=== PATIENT | male | born 1995 | race American Indian/Alaskan Native ===

== ENCOUNTER 2017-09-23 13:45 | Inpatient (IN) | payer OTHER ==
[2017-09-23] MEDS ORDERED: ZOFRAN IV ONE (14:21)
[2017-09-23] MEDS ORDERED: NACL 0.9% 1000 ML 1,000 ML IV ONE (14:21)
[2017-09-23] MEDS ORDERED: TORADOL IV ONE (14:21)
[2017-09-23 14:52] LABS: Basophils # (Auto) 0.1 K/mm3 (0.0-0.1); Basophils % (Auto) 0.5 % (0.0-1.8); Eosinophils # (Auto) 0.1 K/mm3 (0.0-0.4); Eosinophils % (Auto) 0.7 % (0.0-4.3); Hematocrit 43.6 % (35.5-45.6); Hemoglobin 14.2 gm/dl (11.8-15.2); Lymphocytes # (Auto) 1.1 K/mm3 (1.2-5.4); Lymphocytes % (Auto) 10.9 % (13.4-35.0); Mean Corpuscular HGB Conc 33 % (32-34); Mean Corpuscular Hemoglobin 27 pg (28-32); Mean Corpuscular Volume 83 fl (84-94); Monocytes # (Auto) 0.6 K/mm3 (0.0-0.8); Monocytes % (Auto) 5.9 % (0.0-7.3); Platelet Count 188 K/mm3 (140-440); Red Blood Count 5.23 M/mm3 (3.65-5.03); Red Cell Distribution Width 15.3 % (13.2-15.2)
--- NOTE | 2017-09-23 15:06 | Cat Scan Report ---
FINAL REPORT EXAM: CT HEAD/BRAIN WO CON HISTORY: altered mental status, c/o headache TECHNIQUE: CT of the Head without IV contrast. PRIORS: None currently available. FINDINGS: There is no evidence for acute ischemia. There is no hemorrhage. There is no midline shift. There is no hydrocephalus. There is no mass. Age appropriate hodges-white matter attenuation is noted. There is no calvarial fracture. The temporal bones demonstrate aerated mastoid air cells. The middle ears appear unremarkable. Paranasal sinuses are unremarkable. Globes are intact. IMPRESSION: No acute intracranial findings.
[2017-09-23] MEDS ORDERED: GEODON IM ONE (15:13)
[2017-09-23 15:17] LABS: BUN/Creatinine Ratio 16; Blood Urea Nitrogen 16 mg/dL (9-20); Hemolysis Index 17
[2017-09-23] MEDS ORDERED: TORADOL ONE (16:41)
[2017-09-23] MEDS ORDERED: ZOFRAN ONE (16:42)
[2017-09-23 18:00] LABS: Amphetamine Screen,Urine PRESUMPTIVE NEGATIVE; Benzodiazepines Screen,Urine PRESUMPTIVE NEGATIVE; Cocaine Screen,Urine PRESUMPTIVE NEGATIVE; Methadone Screen,Urine PRESUMPTIVE NEGATIVE; Opiate Screen,Urine PRESUMPTIVE NEGATIVE
[2017-09-23 18:12] LABS: Cannabinoid Screen,Urine PRESUMPTIVE POSITIVE
--- NOTE | 2017-09-23 18:47 | Emergency Department Report ---
ED Altered Mental Status HPI - General Chief Complaint: Altered Mental Status Stated Complaint: HEADACHE Time Seen by Provider: 09/23/17 14:08 Source: patient Mode of arrival: Wheelchair Limitations: No Limitations - History of Present Illness Initial Comments: Patient is a 22-year-old [place]ian male who is brought in by family for altered mental status. Patient has a history of migraines and sometimes when he has a headache he stops responding to things well. Patient Yassine stay he had a headache earlier this morning. Patient is uncooperative with questioning will not answer anything. Patient is curled up in a ball and appears to just be sleep. When you try to get the patient rollover he he just rolls back into the position. MD Complaint: altered mental status, confusion -: days(s) (1) Associated Symptoms: denies: nausea/vomiting, seizure, shortness of breath - Related Data Allergies Allergy/AdvReac Type Severity Reaction Status Date / Time No Known Allergies Allergy Unverified 09/23/17 13:57 ED Review of Systems ROS: Stated complaint: HEADACHE Other details as noted in HPI Comment: All other systems reviewed and negative ED Past Medical Hx - Past Medical History Previous Medical History?: No - Surgical History Past Surgical History?: No - Social History Smoking Status: Current Every Day Smoker Substance Use Type: Alcohol, Marijuana ED Physical Exam - General Limitations: No Limitations General appearance: alert, in no apparent distress - Head Head exam: Present: atraumatic, normocephalic - Eye Eye exam: Present: normal appearance - ENT ENT exam: Present: mucous membranes moist - Neck Neck exam: Present: normal inspection - Respiratory Respiratory exam: Present: normal lung sounds bilaterally. Absent: respiratory distress, wheezes, rales, rhonchi - Cardiovascular Cardiovascular Exam: Present: regular rate, normal rhythm. Absent: systolic murmur, diastolic murmur, rubs, gallop - GI/Abdominal GI/Abdominal exam: Present: soft, normal bowel sounds - Rectal Rectal exam: Present: deferred - Extremities Exam Extremities exam: Present: normal inspection - Back Exam Back exam: Present: normal inspection - Neurological Exam Neurological exam: Present: alert, altered (patient when asked what his name is he states "yes yes". Patient when asked where he is currently states that he is "in the back") - Psychiatric Psychiatric exam: Present: normal affect, normal mood - Skin Skin exam: Present: warm, dry, intact, normal color. Absent: rash - Level of Consciousness 1a. Level of Consciousness: alert - LOC Questions 1b. LOC Questions: answers correctly - LOC Command 1c. LOC Commands: performs tasks correctly - Best Gaze 2. Best Gaze: normal - Visual 3. Visual: no visual loss - Facial Palsy 4. Facial Palsy: normal symmetrical movement - Motor Arm 5b. Motor Arm Right: no drift 5a. Motor Arm Left: no drift - Motor Leg 6a. Motor Leg Left: no drift 6b. Motor Leg Right: no drift - Limb Ataxia 7. Limb Ataxia: absent - Sensory 8. Sensory: normal - Best Language 9. Best Language: no aphasia - Dysarthria 10. Dysarthria: normal - Extinction and Inattention 11. Extinction/Inattention: no abnormality - Scoring Total Score: 0 Stroke Severity: No Stroke Symptoms ED Course Vital Signs 09/23/17 09/23/17 13:49 14:12 Pulse Rate 96 H 58 L Respiratory 22 16 Rate Blood Pressure 162/139 Blood Pressure 111/48 [Left] O2 Sat by Pulse 98 99 Oximetry - Lab Data Result diagrams: 09/23/17 14:28 09/23/17 14:28 Lab Results 09/23/17 09/23/17 09/23/17 Range/Units 14:28 14:28 14:28 WBC 10.5 (4.5-11.0) K/mm3 RBC 5.23 H (3.65-5.03) M/mm3 Hgb 14.2 (11.8-15.2) gm/dl Hct 43.6 (35.5-45.6) % MCV 83 L (84-94) fl MCH 27 L (28-32) pg MCHC 33 (32-34) % RDW 15.3 H (13.2-15.2) % Plt Count 188 (140-440) K/mm3 Lymph % (Auto) 10.9 L (13.4-35.0) % [place] % (Auto) 5.9 (0.0-7.3) % Eos % (Auto) 0.7 (0.0-4.3) % Baso % (Auto) 0.5 (0.0-1.8) % Lymph # 1.1 L (1.2-5.4) K/mm3 [place] # 0.6 (0.0-0.8) K/mm3 Eos # 0.1 (0.0-0.4) K/mm3 Baso # 0.1 (0.0-0.1) K/mm3 Seg Neutrophils % 82.0 H (40.0-70.0) % Seg Neutrophils # 8.6 H (1.8-7.7) K/mm3 Sodium 136 L (137-145) mmol/L Potassium 3.8 (3.6-5.0) mmol/L Chloride 100.8 (98-107) mmol/L Carbon Dioxide 26 (22-30) mmol/L Anion Gap 13 mmol/L BUN 16 (9-20) mg/dL Creatinine 1.0 (0.8-1.5) mg/dL Estimated GFR > 60 ml/min BUN/Creatinine Ratio 16 % Glucose 94 (75-100) mg/dL Calcium 9.0 (8.4-10.2) mg/dL Urine Opiates Screen Urine Methadone Screen Ur Barbiturates Screen Ur Phencyclidine Scrn Ur Amphetamines Screen U Benzodiazepines Scrn Urine Cocaine Screen U Marijuana (THC) Screen Drugs of Abuse Note Plasma/Serum Alcohol < 0.01 (0-0.07) % 09/23/17 Range/Units 17:34 WBC (4.5-11.0) K/mm3 RBC (3.65-5.03) M/mm3 Hgb (11.8-15.2) gm/dl Hct (35.5-45.6) % MCV (84-94) fl MCH (28-32) pg MCHC (32-34) % RDW (13.2-15.2) % Plt Count (140-440) K/mm3 Lymph % (Auto) (13.4-35.0) % [place] % (Auto) (0.0-7.3) % Eos % (Auto) (0.0-4.3) % Baso % (Auto) (0.0-1.8) % Lymph # (1.2-5.4) K/mm3 [place] # (0.0-0.8) K/mm3 Eos # (0.0-0.4) K/mm3 Baso # (0.0-0.1) K/mm3 Seg Neutrophils % (40.0-70.0) % Seg Neutrophils # (1.8-7.7) K/mm3 Sodium (137-145) mmol/L Potassium (3.6-5.0) mmol/L Chloride (98-107) mmol/L Carbon Dioxide (22-30) mmol/L Anion Gap mmol/L BUN (9-20) mg/dL Creatinine (0.8-1.5) mg/dL Estimated GFR ml/min BUN/Creatinine Ratio % Glucose (75-100) mg/dL Calcium (8.4-10.2) mg/dL Urine Opiates Screen Presumptive negative Urine Methadone Screen Presumptive negative Ur Barbiturates Screen Presumptive negative Ur Phencyclidine Scrn Presumptive negative Ur Amphetamines Screen Presumptive negative U Benzodiazepines Scrn Presumptive negative Urine Cocaine Screen Presumptive negative U Marijuana (THC) Screen Presumptive positive Drugs of Abuse Note Disclamer Plasma/Serum Alcohol (0-0.07) % - Radiology Data CT of the head is within normal limits - Medical Decision Making After the patient's IV fluids were done patient was reassessed. Patient's mother states E she feels though he is a lot more calm. Patient still is appears to be inappropriate with his response to questions. Patient also one point was found by nursing staff to gotten out of bed and urinated in the sink and then got back into bed and again rolled into the position. Patient will be seen by psych assessment team. Patient was assessed at 1900 for acute psychosis and was deemed patient does not have a psych history and that because this is happened in the past but to a lesser degree patient should not be placed on 1013. Patient mother states that she also has migraines and underwent a first 2 days she has a hard time communicating. Patient has had similar however usually he is at least able to respond to questions appropriately and now he is not. Patient does say yes to most questions even when they're not yes or no questions. Patient to be assessed by hospitalist staff. Critical care attestation.: If time is entered above; I have spent that time in minutes in the direct care of this critically ill patient, excluding procedure time. ED Disposition Clinical Impression: Encephalopathy Intractable migraine Qualifiers: Migraine type: unspecified Disposition: DC-01 TO HOME OR SELFCARE Is pt being admited?: Yes Does the pt Need Aspirin: No Condition: Stable Referrals: PRIMARY CARE, [Primary Care Provider] - 3-5 Days
--- NOTE | 2017-09-23 22:17 | History and Physical Report ---
History of Present Illness Date of examination: 09/23/17 History of present illness: 22 year old man with history of migraine was brought to the emergency foor for altered mental status. His mental status is improving but still has episodes of confusion. He states he was with his friends smoking marijuana, he then became hot, his friends brought him to the ER for evaluation. He complined of a headache whern he arrived in the ER. Mom at bedside states that he usually gets migraine 4x/tear and usually gets confused. He has never been to ther ER for migraine evaluation. A review of system is unobtainable PAST MEDICAL HISTORY: migraine PAST SURGICAL HISTORY: None SOCIAL HISTORY: + alcohol, tobacco and marijuana use FAMILY HISTORY: Hypertension Medications and Allergies Allergies Allergy/AdvReac Type Severity Reaction Status Date / Time No Known Allergies Allergy Unverified 09/23/17 13:57 Home Medications Medication Instructions Recorded Confirmed Last Taken Type No Known Home Medications [No 09/23/17 09/23/17 Unknown History Reported Home Medications] Exam - Physical Exam Narrative exam: Gen. appearance: Patient lying in bed, no apparent distress HEENT: Normocephalic, atraumatic, pupils equally round and reactive to light, eyes are , extraocular movement intact, and no sclericterus,. No JVD or thyromegaly or nodule,neck supple, no carotid bruit ,mucous membranes dry, no exudate or erythema Heart: S1, S2, regular rate and rhythm Lungs: Clear bilaterally, breathing comfortable Abdomen: Positive bowel sounds, nontender, nondistended, no organomegaly Extremity:no edema cyanosis, clubbing Skin: no rash, dry Neuro: Oriented to person only, he rest of the exam difficult to assess - Constitutional Vitals: Temp Pulse Resp BP Pulse Ox 58 L 16 111/48 100 09/23/17 14:12 09/23/17 14:12 09/23/17 14:12 09/23/17 14:12 Results - Labs CBC & Chem 7: 09/26/17 09:41 09/26/17 09:41 Labs: Abnormal lab results 09/23/17 09/23/17 Range/Units 14:28 14:28 RBC 5.23 H (3.65-5.03) M/mm3 MCV 83 L (84-94) fl MCH 27 L (28-32) pg RDW 15.3 H (13.2-15.2) % Lymph % (Auto) 10.9 L (13.4-35.0) % Lymph # 1.1 L (1.2-5.4) K/mm3 Seg Neutrophils % 82.0 H (40.0-70.0) % Seg Neutrophils # 8.6 H (1.8-7.7) K/mm3 Sodium 136 L (137-145) mmol/L - Imaging and Cardiology EKG: image reviewed CT Scan - head: report reviewed Assessment and Plan Assessmrnt Acute Encephalopathy due to dugs Plan Admit to medicine Start IV fluid, monitor DVT prophalaxis
[2017-09-23] MEDS ORDERED: NACL 0.9% 1000 ML 1,000 ML IV SCH (23:00)
[2017-09-24] MEDS ORDERED: SODIUM CHLORIDE FLUSH SYRINGE 10 ML IV PRN (00:20)
[2017-09-24] MEDS ORDERED: TYLENOL PO PRN (00:20)
[2017-09-24] MEDS ORDERED: ZOFRAN IV PRN (00:20)
[2017-09-24] MEDS ORDERED: TORADOL IV ONE (01:25)
[2017-09-24 06:21] LABS: Hematocrit 43.9 % (35.5-45.6); Hemoglobin 14.2 gm/dl (11.8-15.2); Mean Corpuscular HGB Conc 32 % (32-34); Mean Corpuscular Hemoglobin 27 pg (28-32); Mean Corpuscular Volume 82 fl (84-94); Platelet Count 201 K/mm3 (140-440); Red Blood Count 5.34 M/mm3 (3.65-5.03); Red Cell Distribution Width 14.7 % (13.2-15.2)
[2017-09-24 06:41] LABS: Basophils % (Auto) 0.3 % (0.0-1.8); Eosinophils % (Auto) 0.1 % (0.0-4.3); Lymphocytes # (Auto) 1.3 K/mm3 (1.2-5.4); Lymphocytes % (Auto) 9.3 % (13.4-35.0); Monocytes % (Auto) 7.5 % (0.0-7.3)
[2017-09-24 06:56] LABS: BUN/Creatinine Ratio 14; Blood Urea Nitrogen 11 mg/dL (9-20); Calcium 9.2 mg/dL (8.4-10.2); Hemolysis Index 3
[2017-09-24] MEDS ORDERED: LOVENOX SUB-Q SCH (10:00)
[2017-09-24] MEDS: SODIUM CHLORIDE FLUSH SYRINGE 10 ML IV SCH ×2 (14:09→21:30)
[2017-09-24] MEDS: LOVENOX SUB-Q SCH (14:09)
[2017-09-24] MEDS ORDERED: FIORICET PO PRN (14:20)
--- NOTE | 2017-09-24 14:38 | Progress Note ---
Assessment and Plan Acute toxic encephalopathy Possible migraine Substance abuse - Normal CT head - cont fioricet as needed for headache - Mental health consult - Lovenox for Dvt Px Brief history: 22 year old man with history of migraine was brought to the emergency foor for altered mental status. He stated he was with his friends smoking marijuana, he then became hot, his friends brought him to the ER for evaluation. He complined of a headache when he arrived in the ER. Physical exam: Gen. appearance: Patient lying in bed, covering face with bedsheet HEENT: Normocephalic, atraumatic, No JVD or thyromegaly or nodule,neck supple, no carotid bruit ,mucous membranes dry, no exudate or erythema Heart: S1, S2, regular rate and rhythm Lungs: Clear bilaterally, breathing comfortable Abdomen: Positive bowel sounds, nontender, nondistended, no organomegaly Extremity:no edema cyanosis, clubbing Skin: no rash, dry Neuro: he rest of the exam difficult to assess, as he is not cooperative, appears to have no focal deficit Subjective Date of service: 09/24/17 Interval history: Pt seen and examined Mother at bedside Patient covering his face, and answers question only with Nodding head Objective - Constitutional Vitals: Vital Signs - 12hr 09/24/17 09/24/17 09/24/17 06:20 09:21 11:51 Temperature 98.3 F Pulse Rate 57 L 66 Respiratory 21 Rate Blood Pressure 173/144 Blood Pressure 121/71 [Left] O2 Sat by Pulse 99 100 Oximetry 09/24/17 13:04 Temperature 99.0 F Pulse Rate 62 Respiratory 20 Rate Blood Pressure 96/57 Blood Pressure [Left] O2 Sat by Pulse 98 Oximetry - Labs CBC & Chem 7: 09/24/17 05:47 09/24/17 05:47 Labs: Abnormal lab results 09/23/17 09/23/17 09/24/17 Range/Units 14:28 14:28 05:47 WBC 13.4 H (4.5-11.0) K/mm3 RBC 5.23 H 5.34 H (3.65-5.03) M/mm3 MCV 83 L 82 L (84-94) fl MCH 27 L 27 L (28-32) pg RDW 15.3 H (13.2-15.2) % Lymph % (Auto) 10.9 L 9.3 L (13.4-35.0) % [place] % (Auto) 7.5 H (0.0-7.3) % Lymph # 1.1 L (1.2-5.4) K/mm3 [place] # 1.0 H (0.0-0.8) K/mm3 Seg Neutrophils % 82.0 H 82.8 H (40.0-70.0) % Seg Neutrophils # 8.6 H 11.1 H (1.8-7.7) K/mm3 Sodium 136 L (137-145) mmol/L Chloride (98-107) mmol/L 09/24/17 Range/Units 05:47 WBC (4.5-11.0) K/mm3 RBC (3.65-5.03) M/mm3 MCV (84-94) fl MCH (28-32) pg RDW (13.2-15.2) % Lymph % (Auto) (13.4-35.0) % [place] % (Auto) (0.0-7.3) % Lymph # (1.2-5.4) K/mm3 [place] # (0.0-0.8) K/mm3 Seg Neutrophils % (40.0-70.0) % Seg Neutrophils # (1.8-7.7) K/mm3 Sodium 135 L (137-145) mmol/L Chloride 97.1 L (98-107) mmol/L
[2017-09-24] MEDS ORDERED: NACL 0.9% 1000 ML 1,000 ML IV ONE (23:32)
[2017-09-25] MEDS: NACL 0.9% 1000 ML 1,000 ML IV SCH ×3 (01:08→17:47)
[2017-09-25] MEDS: LOVENOX SUB-Q SCH (09:27)
[2017-09-25] MEDS: SODIUM CHLORIDE FLUSH SYRINGE 10 ML IV SCH ×2 (10:19→22:20)
--- NOTE | 2017-09-25 14:08 | Progress Note ---
Assessment and Plan Acute toxic encephalopathy Possible migraine, resolved Substance abuse leukocytosis, likley stress induced sinus bradycardia Hypotension, likely from dehydration - Normal CT head - d/c fioricet as resolved headache - Mental health consult pending - will get blood cx for elevated white count, monitor off abx now, pt afebrile - cont iv fluid - Lovenox for Dvt Px Brief history: 22 year old man with history of migraine was brought to the emergency foor for altered mental status. He stated he was with his friends smoking marijuana, he then became hot, his friends brought him to the ER for evaluation. He complined of a headache when he arrived in the ER. Physical exam: Gen. appearance: Patient lying in bed, NAD HEENT: Normocephalic, atraumatic, No JVD or thyromegaly or nodule,neck supple, no carotid bruit ,mucous membranes dry, no exudate or erythema Heart: S1, S2, regular rate and rhythm Lungs: Clear bilaterally, breathing comfortable Abdomen: Positive bowel sounds, nontender, nondistended, no organomegaly Extremity:no edema cyanosis, clubbing Skin: no rash, dry Neuro: cooperative, no focal deficit Subjective Date of service: 09/25/17 Interval history: Pt seen and examined Mother at bedside Patient appears alert and much cooperative today Objective - Constitutional Vitals: Vital Signs - 12hr 09/25/17 09/25/17 05:27 11:47 Temperature 98.2 F 98.4 F Pulse Rate 66 68 Respiratory 16 19 Rate Blood Pressure 107/48 99/62 O2 Sat by Pulse 100 100 Oximetry - Labs CBC & Chem 7: 09/24/17 05:47 09/24/17 05:47
[2017-09-26] MEDS: NACL 0.9% 1000 ML 1,000 ML IV SCH ×2 (02:10→10:04)
[2017-09-26] MEDS: LOVENOX SUB-Q SCH (10:06)
[2017-09-26] MEDS: SODIUM CHLORIDE FLUSH SYRINGE 10 ML IV SCH (10:07)
[2017-09-26 11:15] LABS: Hematocrit 44.5 % (35.5-45.6); Hemoglobin 14.6 gm/dl (11.8-15.2); Mean Corpuscular HGB Conc 33 % (32-34); Mean Corpuscular Hemoglobin 28 pg (28-32); Mean Corpuscular Volume 84 fl (84-94); Platelet Count 176 K/mm3 (140-440); Red Blood Count 5.28 M/mm3 (3.65-5.03); Red Cell Distribution Width 15.3 % (13.2-15.2)
[2017-09-26 11:34] LABS: BUN/Creatinine Ratio 10; Blood Urea Nitrogen 9 mg/dL (9-20); Calcium 8.6 mg/dL (8.4-10.2); Hemolysis Index 15
--- NOTE | 2017-09-26 11:41 | Discharge Summary ---
Providers - Providers Date of Admission: 09/23/17 22:16 Date of discharge: 09/26/17 Attending physician: PHILIPPE MORGAN 09/24/17 14:21 Consult to Mental Health [CONS] Routine Reason For Exam: drug abuse Place consult to:: psych Notified:: DANIEL Phone number called:: [phone] Was contact made?: Yes If yes, spoke with:: DANIEL Time called:: 13:47 Primary care physician: ABE TEACHER Hospitalization Condition: Stable Hospital course: Brief history: 22 year old man with history of migraine was brought to the emergency foor for altered mental status. He stated he was with his friends smoking marijuana, he then became hot, his friends brought him to the ER for evaluation. He complined of a headache when he arrived in the ER. Discharge diagnosis and management: Acute toxic encephalopathy, likely from drug abuse, resolved Possible migraine, resolved, outpt follow up Substance abuse, counselled leukocytosis, likley stress induced, resolved sinus bradycardia, physiological while asleep Hypotension, likely from dehydration, resolved - Normal CT head - d/c fioricet as resolved headache - Mental health consult pending - will get blood cx for elevated white count, monitor off abx now, pt afebrile - cont iv fluid - Lovenox for Dvt Px Physical exam: Gen. appearance: Patient lying in bed, NAD HEENT: Normocephalic, atraumatic, No JVD or thyromegaly or nodule,neck supple, no carotid bruit ,mucous membranes dry, no exudate or erythema Heart: S1, S2, regular rate and rhythm Lungs: Clear bilaterally, breathing comfortable Abdomen: Positive bowel sounds, nontender, nondistended, no organomegaly Extremity:no edema cyanosis, clubbing Skin: no rash, dry Neuro: cooperative, no focal deficit Disposition: DC-01 TO HOME OR SELFCARE Time spent for discharge: 32 minutes Core Measure Documentation - Palliative Care Palliative Care/ Comfort Measures: Not Applicable - Core Measures Any of the following diagnoses?: none Exam - Constitutional Vitals: Temp Pulse Resp BP Pulse Ox 98.0 F 52 L 18 122/66 100 09/26/17 06:29 09/26/17 06:29 09/26/17 06:29 09/26/17 06:29 09/26/17 06:29 Plan Activity: advance as tolerated Weight Bearing Status: Weight Bear as Tolerated Diet: regular Follow up with: PRIMARY CARE, [Primary Care Provider] - 3-5 Days
[2017-09-26 12:09] VITALS: BP 129/81
== END 2017-09-26 13:30 | disposition home or self-care (01) | DRG 93 ==
LOC: ED 13:45 → 3A 22:16
PROVIDERS: ADMIT Internal Medicine; ATTEND Internal Medicine
DX: G92 Toxic encephalopathy (principal); G43.919 Migraine, unspecified, intractable, without status migrainosus; F12.10 Cannabis abuse, uncomplicated; D72.829 Elevated white blood cell count, unspecified; R00.1 Bradycardia, unspecified; I95.9 Hypotension, unspecified; E86.0 Dehydration; T40.7X5A Adverse effect of cannabis (derivatives), initial encounter; F17.200 Nicotine dependence, unspecified, uncomplicated; Z82.49 Family history of ischemic heart disease and other diseases of the circulatory system; Y92.89 Other specified places as the place of occurrence of the external cause; Z72.89 Other problems related to lifestyle
CPT/HCPCS: 36415; 70450; 80048; 80307; 80320; 85025; 85027; 87040; G0480; J1650; J1885; J2405; J3486; J7030